=== PATIENT | male | born 1970 | race Caucasian/White ===

== ENCOUNTER 2025-01-07 18:00 | Emergency (ER) | payer OTHER ==
[~2025-01-07] VITALS: Ht 162.6 cm; Wt 70.3 kg
--- NOTE | 2025-01-07 18:25 | HMCIMG ---
PORTABLE CHEST RADIOGRAPH INDICATION: Pain COMPARISON: None FINDINGS: Heart size is normal. The pulmonary vascularity and linette appear normal. Linear opacities at the left lung base without consolidation. Left hemidiaphragm is elevated. No significant pleural effusion noted. No pneumothorax detected. IMPRESSION: Minimal left lung base atelectasis.
[2025-01-07 18:32] LABS: BASOPHILS # (AUTO) 0.04 K/uL (0.00-0.20); BASOPHILS % (AUTO) 0.5 % (0.0-5.0); EOSINOPHILS # (AUTO) 0.21 K/uL (0.00-0.70); EOSINOPHILS % (AUTO) 2.5 % (0.0-8.0); HEMATOCRIT 43.5 % (42-54); IMMATURE GRANULOCYTE ABSOLUTE 0.05 K/uL (0-1); LYMPHOCYTES # (AUTO) 1.8 K/uL (1.0-4.8); LYMPHOCYTES % (AUTO) 21.3 % (21.0-51.0); MEAN CORPUSCULAR HEMOGLOBIN 27.9 pg (27.0-33.0); MEAN CORPUSCULAR HGB CONC 32.2 g/dL (32.0-36.0); MEAN CORPUSCULAR VOLUME 86.8 fL (79-99); MONOCYTES # (AUTO) 0.9 K/uL (0.1-1.0); MONOCYTES % (AUTO) 10.4 % (3.0-13.0); NEUTROPHILS # (AUTO) 5.5 K/uL (1.8-7.7); NEUTROPHILS % (AUTO) 64.7 % (40.0-77.0); PLATELET COUNT (AUTO) 358 K/uL (130-400); RED BLOOD CELL COUNT(AUTO) 5.01 MIL/uL (4.50-6.20); RED CELL DISTRIBUTION WIDTH 14.5 % (11.0-15.5); WHITE BLOOD COUNT (AUTO) 8.5 K/uL (4.8-10.8)
[2025-01-07 18:48] LABS: CREATININE 1.1 mg/dL (0.5-1.3)
--- NOTE | 2025-01-07 19:15 | NUR ---
REPORT GIVEN TO MIGDALIA HALEY
[2025-01-07 19:29] LABS: B-TYPE NATRIURETIC PEPTIDE < 5 pg/mL (0-100)
--- NOTE | 2025-01-07 19:53 | ERN ---
General Chief Complaint: Chest Pain Stated Complaint: CHEST PAIN Time Seen by MD: 18:05 Time Seen by Midlevel: 18:05 Source: patient History of Present Illness Allergies: Coded Allergies: No Known Drug Allergies (Unverified Allergy, Unknown, 01/07/25) Past Medical History Past Medical History: Asthma, CAD, COPD, Heart Disease, Hypertension, Other Medical History Other: HEART MURMUR Past Surgical History: CABG Results Laboratory and Microbiology Lab and Micro Result Laboratory Tests Test 01/07/25 18:27 01/07/25 19:25 01/07/25 21:11 White Blood Count 8.5 K/uL (4.8-10.8) Red Blood Count 5.01 MIL/uL (4.50-6.20) Hemoglobin 14.0 g/dL (14.0-18.0) Hematocrit 43.5 % (42-54) Mean Corpuscular Volume 86.8 fL (79-99) Mean Corpuscular Hemoglobin 27.9 pg (27.0-33.0) Mean Corpuscular Hemoglobin Concent 32.2 g/dL (32.0-36.0) Red Cell Distribution Width 14.5 % (11.0-15.5) Platelet Count 358 K/uL (130-400) Mean Platelet Volume 9.7 fL (7.5-10.5) Immature Granulocyte % (Auto) 0.6 % (0-1) Neutrophils (%) (Auto) 64.7 % (40.0-77.0) Lymphocytes (%) (Auto) 21.3 % (21.0-51.0) Monocytes (%) (Auto) 10.4 % (3.0-13.0) Eosinophils (%) (Auto) 2.5 % (0.0-8.0) Basophils (%) (Auto) 0.5 % (0.0-5.0) Neutrophils # (Auto) 5.5 K/uL (1.8-7.7) Lymphocytes # (Auto) 1.8 K/uL (1.0-4.8) Monocytes # (Auto) 0.9 K/uL (0.1-1.0) Eosinophils # (Auto) 0.21 K/uL (0.00-0.70) Basophils # (Auto) 0.04 K/uL (0.00-0.20) Absolute Immature Granulocyte (auto 0.05 K/uL (0-1) Nucleated Red Blood Cells 0.0 % (0.0-0.19) Sodium Level 137 mmol/L (136-145) Potassium Level 4.0 mmol/L (3.5-5.1) Chloride Level 101 mmol/L (101-111) Carbon Dioxide Level 31 mmol/L (21-32) Blood Urea Nitrogen 10 mg/dL (7-18) Creatinine 1.1 mg/dL (0.5-1.3) Glomerular Filtration Rate Calc 80 mL/min (>90) Random Glucose 99 mg/dL (70-105) Total Calcium 9.1 mg/dL (8.5-10.1) Troponin I High Sensitivity 5 ng/L (4-75) 7 ng/L (4-75) B-Type Natriuretic Peptide < 5 pg/mL (0-100) Influenza Type A Antigen Negative For Type A Influenza Type B Antigen Negative For Type B SARS-CoV-2 Antigen (Rapid) PRESUMPTIVE NEGATIVE Group A Streptococcus Rapid negative (NEGATIVE) EKG/XRAY/US/CT/MRI EKG Comment Date: 01/07/2025 Time: 18:08 Rate: 109 EKG interpretation: Sinus tachy, no STEMI Reviewed by ED Attending ED Course Orders Procedure Category Date Status Time Cbc With Differential LAB 01/07/25 Complete 18:05 Basic Metabolic Panel LAB 01/07/25 Complete 18:05 12 Lead Ekg Tracing- EKG 01/07/25 Logged Technical 18:05 Troponin I High LAB 01/07/25 Complete Sensitivity 18:05 B-Type Natriuretic LAB 01/07/25 Complete Peptide 18:05 Chest 1vw RAD 01/07/25 Resulted 18:05 Covid19 (Sars Antigen LAB 01/07/25 Complete Rapid) 18:46 Influenza Type A & B, LAB 01/07/25 Complete Rapid 18:46 Rapid (Group A Strep) LAB 01/07/25 Complete 18:46 Ketorolac PHA 01/07/25 Complete Tromethamine 15mg/Ml 20:30 Furosemide 40mg Vial PHA 01/07/25 Complete (Lasix 40mg Vial) 21:00 Troponin I High LAB 01/07/25 Complete Sensitivity 20:42 Budesonide 0.5 Mg/2 PHA 01/07/25 Complete Ml Inh (Pulmicort 0. 06:00 Budesonide 0.5 Mg/2 PHA 01/07/25 Complete Ml Inh (Pulmicort 0. 20:56 Current Medications Medications (Trade) Dose Ordered Sig/Lori Route PRN Reason Start Time Stop Time Status Last Admin Dose Admin Budesonide (Pulmicort 0.5 Mg/2ml) 0.5 mg ONCE ONCE IH 01/07/25 06:00 01/07/25 20:45 DC 01/07/25 21:06 Budesonide (Pulmicort 0.5 Mg/2ml) 0.5 mg STK-MED ONCE IH 01/07/25 20:56 01/07/25 20:56 DC Furosemide (LASix 40MG VIAL) 40 mg ONCE ONCE IV 01/07/25 21:00 01/07/25 21:01 DC 01/07/25 21:10 Ketorolac Tromethamine (toRADol) 15 mg ONCE ONCE IM 01/07/25 20:30 01/07/25 20:31 DC 01/07/25 21:09 Vital Signs Date Time Temp Pulse Resp B/P (MAP) Pulse Ox O2 Delivery O2 Flow Rate FiO2 01/07/25 21:07 96 18 01/07/25 20:07 98.4 102 18 114/71 95 Room Air* 0 21 01/07/25 18:58 98.6 105 16 118/71 97 Room Air* 0 21 01/07/25 18:02 98.4 120 17 115/76 94 Room Air 0 DX & DISP Disposition: Discharge Departure Impression: Primary Impression: Chest pain with low risk for cardiac etiology Condition: Stable Additional Instructions: Discharge home. Rest. Follow up with primary care DrPawan in 24 hours. Return to the ER for any acute changes or worsening symptoms. If any medications were prescribed take as directed. Okay to continue home me dications unless otherwise discussed during your visit in the emergency room today. Patient was also advised to follow-up with primary care physician in 1 to 2 days for continued monitoring. Referrals: SELF,REFERRAL (PCP) I performed the substantive portion of the visit. I have reviewed and personally made and approve the management plan that is documented in the notes by myself or the RENATO. I acknowledge full responsibility for the patient's management plan. NATALIA MOYA Jan 07, 2025 19:52
[2025-01-07 19:57] LABS: RAPID GROUP A STREP negative (NEGATIVE)
[2025-01-07 20:07] LABS: COVID19 (SARS ANTIGEN RAPID) PRESUMPTIVE NEGATIVE (NEGATIVE); INFLUENZA TYPE A Negative For Type A (NEGATIVE); INFLUENZA TYPE B Negative For Type B (NEGATIVE)
[2025-01-07] MEDS: BUDESONIDE 0.5 MG/2 ML INH IH ONE ×2 (21:06)
[2025-01-07 21:07] VITALS: PULSE 96; RESP 18
[2025-01-07] MEDS: ketOROlac 15MG/ML VIAL (15MG/ML) IM ONE (21:09)
[2025-01-07] MEDS: furoSEMIDE 40MG VIAL IV ONE (21:10)
[2025-01-07 22:23] VITALS: BP 121/65; PULSE 95; RESP 18; TEMP 98.4; O2SAT 95
--- NOTE | 2025-01-08 08:06 | EKG ---
[facility] Test Date: 2025-01-07 Test Time: 18:08:08 Pat Name: ALKA FERNÁNDEZ Department: ED Room: Gender: [employer]: [id number] : 1970 Requested By: NATALIA MOYA Order Number: [id number] Reading MD: Nayeli Neely Measurements Intervals [place] Rate: 109 P: 37 [place]: 129 QRS: 6 QRSD: 75 T: 11 QT: 307 QTc: 415 Interpretive Statements Sinus tachycardia Consider anterior infarct No previous ECG available for comparison Electronically Signed On 01-09-2025 13:18:41 CDT by Nayeli Neely Please click the below link to view image of tracing.
== END 2025-01-07 22:24 | disposition home or self-care (01) ==
LOC: EDH 18:00 → EEVIPCON 18:00 → EDH 22:24
DX: R07.89 Other chest pain (principal); I25.10 Atherosclerotic heart disease of native coronary artery without angina pectoris; I10 Essential (primary) hypertension; J45.909 Unspecified asthma, uncomplicated; Z79.51 Long term (current) use of inhaled steroids; Z95.1 Presence of aortocoronary bypass graft; Z20.822 Contact with and (suspected) exposure to COVID-19
CPT/HCPCS: 99285; 84484 ×2; 80048; 83880; 85025; 87880; 87804 ×2; 87426; 36415; 71045; 96372; 96374; 93005; 94640; J1938; J1885